=== PATIENT | female | born 1955 | race Caucasian/White ===

== ENCOUNTER 2019-06-10 20:07 | Emergency (ER) | payer MEDICAID ==
[~2019-06-10] VITALS: Ht 147.3 cm; Wt 70.8 kg
--- NOTE | 2019-06-10 20:20 | NUR ---
Patient ambulated with stable gait. Son was present and used for interpreting services. A/Ox4. Speech is clear, speaks in complete sentences. No neuro deficits noted. Patient came for c/o urological issues; burning upon urination for 5-7 days now. Respiratory even and unlabored, no cough no sob. No cardiovascular disterss noted, all pulses palpable. Denies any n/v/d.
--- NOTE | 2019-06-10 20:25 | NUR ---
Pt provided urine sample, sent to lab.
--- NOTE | 2019-06-10 20:30 | NUR ---
ERMD at bedside
[2019-06-10 20:48] LABS: *BILIRUBIN,URIN NEGATIVE (NEGATIVE); *BLOOD, URINE NEGATIVE (NEGATIVE); *CLARITY,URINE SLIGHTLY CLOUDY (CLEAR); *COLOR,URINE YELLOW (YELLOW); *KETONES,URINE NEGATIVE (NEGATIVE); *UROBILINOGEN,URINE 0.2 E.U./dl (NORMAL); LEUKOCYTE ESTERASE ,URINE NEGATIVE (NEGATIVE); NITRITE, URINE NEGATIVE (NEGATIVE); PH,URINE 5.5 (5.0-8.0); UGLUCOSE 2+ (NEGATIVE)
[2019-06-10 20:53] LABS: BACTERIA,URINE MODERATE /HPF (NONE SEEN); SQUAMOUS EPITHELIAL CELL,UR MANY /HPF (NONE SEEN)
[2019-06-10] MEDS ORDERED: HYDROCODONE/APAP 10-325 MG TABLET PO ONE (21:00)
[2019-06-10] MEDS ORDERED: ONDANSETRON ODT 4 MG TAB.RAPDIS SL ONE (21:00)
[2019-06-10] MEDS ORDERED: ONDANSETRON ODT 4 MG TAB.RAPDIS ONE (21:01)
[2019-06-10] MEDS ORDERED: HYDROCODONE/APAP 10-325 MG TABLET ONE (21:01)
--- NOTE | 2019-06-10 21:10 | NUR ---
PATIENT MOVED TO ROOM 05A.
[2019-06-10] MEDS ORDERED: NITROFURANTOIN/NITROFURAN MAC 100 MG CAPSULE PO ONE (21:45)
[2019-06-10] MEDS ORDERED: FLUCONAZOLE 100 MG TABLET PO ONE (21:45)
--- NOTE | 2019-06-10 21:45 | NUR ---
DR REED AT BEDSIDE MADE PATIENT AWARE OF TEST RESULTS. WILL DC HOME.
[2019-06-10] MEDS ORDERED: FLUCONAZOLE 100 MG TABLET ONE (21:52)
[2019-06-10] MEDS ORDERED: NITROFURANTOIN/NITROFURAN MAC 100 MG CAPSULE ONE (21:52)
--- NOTE | 2019-06-10 21:53 | NUR ---
Patient discharged to home in stable conditon. Written and verbal after care instructions given. Patient verbalizes understanding of instructions.
[2019-06-10 21:57] VITALS: BP 138/71
== END 2019-06-10 21:59 | disposition home or self-care (01) ==
LOC: ER 20:14
DX: R10.2 Pelvic and perineal pain (principal); E11.9 Type 2 diabetes mellitus without complications
CPT/HCPCS: 87086; 87210; A4663; Q0162

== ENCOUNTER 2020-03-16 17:11 | Inpatient (IN) | payer MEDICAID, SELFPAY ==
[~2020-03-16] VITALS: Ht 147.3 cm; Wt 65.3 kg
--- NOTE | 2020-03-16 17:20 | NUR ---
Dr. Mcclellan at the bedside for MSE.
[2020-03-16] MEDS ORDERED: ACET-2154 PO (17:27)
[2020-03-16] MEDS ORDERED: CEFTRIAXONE 1 G in IV DEXTROSE 5% 50 ML IV ONE (18:00)
[2020-03-16] MEDS ORDERED: AZITHROMYCIN IV 500 MG in IV DEXTROSE 5% 250 ML IV ONE (18:00)
[2020-03-16] MEDS ORDERED: AZITHROMYCIN 500MG/ D5W 250ML IVPB **ER PYXIS ONLY IV ONE (18:06)
[2020-03-16] MEDS ORDERED: CEFTRIAXONE /D5W 50ML IVPB **ER PYXIS IV ONE (18:07)
[2020-03-16] MEDS ORDERED: SWABABLE VALVE TRANSFER SET EA MC ONE (18:15)
[2020-03-16] MEDS ORDERED: IOHEXOL 350 100 ML INFUS..BTL ONE (18:15)
[2020-03-16] MEDS ORDERED: IV NORMAL SALINE 250 ML IV ONE (18:16)
[2020-03-16 18:57] LABS: BASOPHILS % (AUTO) 0.3 % (0.0-2.0); LYMPHOCYTES % (AUTO) 14.5 % (20.5-51.5); MEAN CORPUSCULAR HEMOGLOBIN 29.4 uug (24.7-32.8); MEAN CORPUSCULAR HGB CONC 33 g/dL (32.3-35.6); MONOCYTES # (AUTO) 0.4 K/uL (2.0-10.0); MONOCYTES % (AUTO) 5.4 % (0.0-11.0); NEUTROPHILS # (AUTO) 5.7 K/uL (1.8-8.9); NEUTROPHILS % (AUTO) 79.8 % (38.5-71.5); PLATELET COUNT (AUTO) 379 K/uL (179-408); RED BLOOD CELL COUNT(AUTO) 4.77 MIL/uL (3.63-4.92); WHITE BLOOD COUNT (AUTO) 7.2 K/uL (3.8-11.8)
--- NOTE | 2020-03-16 19:07 | NUR ---
Full SBAR report given to FRAME STRIPPER AND CRUSHERagricultural agentelectro winning operator Edwin.
[2020-03-16 19:13] LABS: CREATININE 0.8 mg/dL (0.6-1.3); POTASSIUM 3.6 mmol/L (3.5-5.1)
[2020-03-16 19:20] LABS: BILIRUBIN,TOTAL 0.6 mg/dL (0.2-1.0); TOTAL PROTEIN, SERUM 8.4 g/dL (6.4-8.2)
[2020-03-16 19:42] LABS: *BILIRUBIN,URIN 1+ (NEGATIVE); *BLOOD, URINE NEGATIVE (NEGATIVE); *COLOR,URINE DARK YELLOW (YELLOW); *KETONES,URINE 3+ (NEGATIVE); *UROBILINOGEN,URINE 0.2 E.U./dl (NORMAL); LEUKOCYTE ESTERASE ,URINE NEGATIVE (NEGATIVE); NITRITE, URINE NEGATIVE (NEGATIVE); UGLUCOSE 2+ (NEGATIVE)
[2020-03-16 19:53] LABS: *CLARITY,URINE SLIGHTLY HAZY (CLEAR)
[2020-03-16 19:54] LABS: MUCUS,URINE MODERATE /LPF (0-FEW); RBC,URINE 0-3 /HPF (0-3); SQUAMOUS EPITHELIAL CELL,UR FEW /HPF (NONE SEEN)
--- NOTE | 2020-03-16 20:05 | NUR ---
Paged Epic panel manager investigations. Waiting for Kevin CLINIC CHARGE NURSE to call back.
--- NOTE | 2020-03-16 21:09 | NUR ---
Dr Garcia speaking with Kevin LEAD WEB DEVELOPER recreational aide from [facility].
[2020-03-16] MEDS ORDERED: ONDANSETRON 4 MG/2 ML VIAL IV PRN (21:15)
[2020-03-16] MEDS ORDERED: MAGNESIUM HYDROXIDE 30 ML LIQUID UDC PO PRN (21:15)
[2020-03-16] MEDS ORDERED: Z GUARD REMEDY PASTE 57 GM TUBE TOP PRN (21:15)
--- NOTE | 2020-03-16 21:45 | NUR ---
Transfered to 3rd floor Tele.
[2020-03-16] MEDS: ENOXAPARIN SODIUM 40 MG/0.4 ML DISP.SYRIN SQ SCH (21:49)
[2020-03-16 22:02] LABS: ABG BASE EXCESS -0.1 mmol/L; ABG HCO3 23.6 mmol/L; ABG PCO2 35.8 mmHg (35.0-45.0); ABG PH 7.437 (7.350-7.450); ABG PO2 88.5 mmHg (75.0-100.0); ABG SITE RIGHT RADIAL; ABG TOTAL HEMOGLOBIN 15.6 G/dL (12.0-16.0); MetHb 0.1 % (0.0-1.5); O2Hb 96.1 % (94.0-97.0); VENT MODE ROOM AIR
[2020-03-16 22:10] VITALS: BP 117/66
[2020-03-16] MEDS: ACETAMINOPHEN 325 MG TABLET PO PRN (22:26)
[2020-03-17 01:02] VITALS: BP 114/76
[2020-03-17 03:44] VITALS: BP 114/51
[2020-03-17 06:23] LABS: BASOPHILS % (AUTO) 0.2 % (0.0-2.0); HEMATOCRIT 40.8 % (31.2-41.9); HEMOGLOBIN 13.7 g/dL (10.9-14.3); LYMPHOCYTES # (AUTO) 1.3 K/uL (20.0-40.0); LYMPHOCYTES % (AUTO) 18.4 % (20.5-51.5); MEAN CORPUSCULAR HEMOGLOBIN 29.7 uug (24.7-32.8); MEAN CORPUSCULAR HGB CONC 34 g/dL (32.3-35.6); MEAN CORPUSCULAR VOLUME 88.3 fL (75.5-95.3); MONOCYTES # (AUTO) 0.6 K/uL (2.0-10.0); MONOCYTES % (AUTO) 7.9 % (0.0-11.0); NEUTROPHILS # (AUTO) 5.2 K/uL (1.8-8.9); NEUTROPHILS % (AUTO) 73.5 % (38.5-71.5); PLATELET COUNT (AUTO) 362 K/uL (179-408); RED BLOOD CELL COUNT(AUTO) 4.62 MIL/uL (3.63-4.92); WHITE BLOOD COUNT (AUTO) 7.1 K/uL (3.8-11.8)
[2020-03-17 07:23] LABS: CREATININE 0.7 mg/dL (0.6-1.3); MAGNESIUM 2.1 mg/dL (1.8-2.4); PHOSPHOROUS 3.5 mg/dL (2.5-4.9); POTASSIUM 3.6 mmol/L (3.5-5.1)
[2020-03-17] MEDS: ACETAMINOPHEN 325 MG TABLET PO PRN ×2 (09:08→20:59)
[2020-03-17 11:30] VITALS: BP 114/68
--- NOTE | 2020-03-17 15:17 | NUR ---
pt. had 4 episodes of non sustained v tach. CORINNE Brown made aware. Awaiting response. Pt. is resting in bed states she is doing well does not feel any chest pain, discomfort. pt. saturating 97 on 2 L. BP 140/80 HR 84. will continue to monitor pt.
[2020-03-17 16:00] VITALS: BP 140/76
[2020-03-17] MEDS ORDERED: CEFTRIAXONE 1 G in IV DEXTROSE 5% 50 ML IV SCH (19:00)
[2020-03-17] MEDS ORDERED: AZITHROMYCIN IV 500 MG in IV DEXTROSE 5% 250 ML IV SCH (20:00)
[2020-03-17 20:25] VITALS: BP 135/74
--- NOTE | 2020-03-17 20:40 | NUR ---
spoke with [employer], she asked to have patient NPO for 0730 US of the liver on the 03/18.
[2020-03-17] MEDS: ENOXAPARIN SODIUM 40 MG/0.4 ML DISP.SYRIN SQ SCH (21:03)
[2020-03-18 01:17] VITALS: BP 127/71
[2020-03-18 05:06] VITALS: BP 112/61
[2020-03-18 07:28] LABS: BASOPHILS % (AUTO) 0.5 % (0.0-2.0); EOSINOPHILS % (AUTO) 0.3 % (0.0-7.0); HEMOGLOBIN 13.8 g/dL (10.9-14.3); LYMPHOCYTES # (AUTO) 1.5 K/uL (20.0-40.0); LYMPHOCYTES % (AUTO) 32.5 % (20.5-51.5); MEAN CORPUSCULAR HEMOGLOBIN 29.8 uug (24.7-32.8); MEAN CORPUSCULAR HGB CONC 34 g/dL (32.3-35.6); MEAN CORPUSCULAR VOLUME 88.6 fL (75.5-95.3); MONOCYTES # (AUTO) 0.4 K/uL (2.0-10.0); NEUTROPHILS # (AUTO) 2.6 K/uL (1.8-8.9); NEUTROPHILS % (AUTO) 57.7 % (38.5-71.5); PLATELET COUNT (AUTO) 391 K/uL (179-408); RED BLOOD CELL COUNT(AUTO) 4.63 MIL/uL (3.63-4.92); WHITE BLOOD COUNT (AUTO) 4.5 K/uL (3.8-11.8)
[2020-03-18 07:47] LABS: CREATININE 0.7 mg/dL (0.6-1.3); MAGNESIUM 1.9 mg/dL (1.8-2.4); PHOSPHOROUS 3.2 mg/dL (2.5-4.9); POTASSIUM 3.6 mmol/L (3.5-5.1)
--- NOTE | 2020-03-18 09:25 | NUR ---
ULTRA SOUND OF THE ABDOMEN COMPLETED BREAKFAST OBTAINED AND PATIENT SERVED ALSO SWAB FOR INFLUENZA A AND B OBTAINED AND SENT TO THE LAB
[2020-03-18] MEDS ORDERED: LEVO500T2 PO (11:57)
[2020-03-18] MEDS ORDERED: ASPI81TA31 PO (11:57)
[2020-03-18] MEDS ORDERED: ATOR20TA PO (11:57)
[2020-03-18 11:59] VITALS: BP 125/67
--- NOTE | 2020-03-18 12:07 | NUR ---
PATIENT SEEN AND EXAMINED BY GILMAR LAGOS TO DISCHARGE PATIENT HOME TODAY AND NOTED WILL TALK TO THE PATIENT TO SEE WHO WILL PICK HER UP
--- NOTE | 2020-03-18 14:20 | NUR ---
PATIENT DISCHARGED PICKED UP BY HER FRIEND FLO IN SATISFACTORY CONDITION WITH DISCHARGE INSTRUCTIONS AND PRESCRIPTIONS WITH ALL OF HER PERSONAL BELONGINGS FLO WAS INSTRUCTED THAT PATIENT SHOULD MAINTAIN SOCIAL DISTANCING AND ISOLATE FOR 14 DAYS AND ALSO TO CHECK HER O2 SATS AT LEAST 2 TIMES A DAY AND IF SATS ARE BELOW 95VPERCENT TO GO TO THE NEAREST ED OR IF SOB ETC AND HE EXPRESSED UNDERSTANDING.
[2020-03-18] MEDS ORDERED: ATORVASTATIN 20 MG TABLET PO SCH (21:00)
[2020-03-19] MEDS ORDERED: ASPIRIN 81 MG TAB.CHEW PO SCH (09:00)
== END 2020-03-18 14:20 | disposition home or self-care (01) | DRG 194 ==
LOC: ER 17:22 → TELE3 21:05
PROVIDERS: ADMIT Nurse Practitioner Acute Care; ATTEND Nurse Practitioner Acute Care
DX: J15.9 Unspecified bacterial pneumonia (principal); I31.3 Pericardial effusion (noninflammatory); D68.69 Other thrombophilia; Q25.46 Tortuous aortic arch; E78.5 Hyperlipidemia, unspecified; I51.7 Cardiomegaly; K76.0 Fatty (change of) liver, not elsewhere classified; E11.9 Type 2 diabetes mellitus without complications; E66.9 Obesity, unspecified; Z68.30 Body mass index [BMI] 30.0-30.9, adult
CPT/HCPCS: 36415; 36600; 70030-TC; 70450; 71045; 71275; 76700; 83605; 83615; 83735; 84100; 85025; 85730; 86140; 87040; 87086; 87400; 93005; A4663; G0378; J0456; J0696; J1650; J2405; J7050; J7060; Q9967; U0003-CS